=== PATIENT | female | born 2000 | race Two or more races ===

== ENCOUNTER 2019-01-10 06:06 | Observation (INO) | payer SELFPAY ==
[~2019-01-10] VITALS: Ht 157.5 cm; Wt 70.3 kg
[2019-01-10 06:10] VITALS: BP 139/85
[2019-01-10] MEDS ORDERED: LACTATED RINGER'S 1,000 ML IV SCH (06:26)
[2019-01-10] MEDS: TERBUTALINE SULFATE 1 MG/ML 1ML VIAL SC SCH ×3 (06:48→08:21)
[2019-01-10] MEDS ORDERED: BETAMETHASONE ACET (6MG/ML) 5ML VIAL IM ONE (07:45)
[2019-01-10 08:00] LABS: Urine Bacteria FEW /hpf (None Seen); Urine Blood Negative /uL (Negative); Urine Mucus FEW (None Seen); Urine Specific Gravity 1.016 (1.001-1.035); Urine WBC 1 /hpf (0 - 5)
[2019-01-10 08:34] LABS: Basophils # (auto) 0 uL; Basophils % (auto) 0.1 % (0.0-2.0); Eosinophils # (auto) 0.1 uL; Eosinophils % (auto) 0.7 % (0.0-7.0); Hematocrit 37.4 % (36.0-46.0); Hemoglobin 12.1 g/dL (12.2-16.2); Lymphocytes # (auto) 2.8 uL; Lymphocytes % (auto) 18.5 % (10.0-50.0); Mean Corpuscular Hemoglobin 28.2 pg (28.0-32.0); Mean Corpuscular Hgb Conc. 32.4 g/dL (32.0-36.0); Mean Corpuscular Volume 86.8 fL (80.0-100.0); Monocytes # (auto) 0.9 uL; Monocytes % (auto) 6.2 % (0.0-12.0); Neutrophils # (auto) 11.3 uL; Neutrophils % (auto) 74.5 % (37.0-80.0); Nucleated Red Blood Cells % 0.1 %; Platelet Count (auto) 298 10^3/uL (140-450); Red Blood Cells 4.31 10^6/uL (4.0-5.20); Red Cell Distribution Width 13.9 % (11.8-14.3); White Blood Cell 15.2 10^3/uL (4.4-10.8)
[2019-01-10 08:50] LABS: INR < 0.93 (0.9-1.15); Partial Thromboplastin Time 27.1 sec (23.64-32.05)
[2019-01-10 08:52] LABS: Albumin 2.7 g/dL (3.4-5.0); BUN/Creatinine Ratio 12.5; Calcium 8.9 mg/dL (8.5-10.1); Uric Acid 4.1 mg/dL (2.6-6.0)
[2019-01-10 08:55] LABS: Bilirubin, Total 0.4 mg/dL (0.2-1.0); Total Protein 7.1 g/dL (6.4-8.2)
[2019-01-11 06:06] LABS: RPR Non Reactive (Non Reactive)
[2019-01-11 13:06] LABS: Rubella Antibodies, IgG 0.96 index (Immune >0.99)
== END 2019-01-10 08:50 | disposition home or self-care (01) | DRG 833 ==
LOC: ER 06:06 → LDRP 06:07
PROVIDERS: ADMIT Obstetrics & Gynecology; ATTEND Obstetrics & Gynecology
DX: O60.03 Preterm labor without delivery, third trimester (principal); O62.9 Abnormality of forces of labor, unspecified; O99.89 Other specified diseases and conditions complicating pregnancy, childbirth and the puerperium; M25.559 Pain in unspecified hip; Z3A.32 32 weeks gestation of pregnancy
CPT/HCPCS: 36415; 59025; 76805; 80053; 81001; 81002; 84112; 84550; 85025; 85610; 85730; 86592; 86762; 86790; 86850; 86900; 86901; 87340; 96372; 99284; G0378; J0702; J3105

== ENCOUNTER 2019-01-11 14:05 | Observation (INO) | payer SELFPAY ==
[2019-01-11] MEDS ORDERED: BETAMETHASONE ACET (6MG/ML) 5ML VIAL IM ONE (14:45)
== END 2019-01-11 15:25 | disposition home or self-care (01) | DRG 833 ==
LOC: LDRP 14:05
PROVIDERS: ADMIT Specialist; ATTEND Specialist
DX: O26.893 Other specified pregnancy related conditions, third trimester (principal); R10.9 Unspecified abdominal pain; M54.9 Dorsalgia, unspecified; M25.559 Pain in unspecified hip; Z3A.35 35 weeks gestation of pregnancy
CPT/HCPCS: 59025; 81002; 96372; G0378

== ENCOUNTER 2019-01-14 01:23 | Emergency (ER) | payer MEDICAID ==
[~2019-01-14] VITALS: Ht 157.5 cm; Wt 78.0 kg
[2019-01-14] MEDS ORDERED: ACETAMINOPHEN/CODEINE#3 (300/30mg) TAB PO ONE (03:45)
[2019-01-14] MEDS ORDERED: cefTRIAXone SOD 1,000 MG VL IM ONE (04:00)
[2019-01-14 04:15] VITALS: BP 134/74
== END 2019-01-14 04:19 | disposition home or self-care (01) ==
LOC: ER 01:25
DX: O26.893 Other specified pregnancy related conditions, third trimester (principal); L03.011 Cellulitis of right finger; Z3A.28 28 weeks gestation of pregnancy
CPT/HCPCS: 10060; 99283; J0696

== ENCOUNTER 2019-01-15 20:49 | Observation (INO) | payer MEDICAID ==
[~2019-01-15] VITALS: Ht 1 cm; Wt 0.5 kg
[2019-01-15] MEDS ORDERED: LACTATED RINGER'S 1,000 ML IV SCH (20:58)
[2019-01-15] MEDS ORDERED: LACTATED RINGER'S 1,000 ML IV ONE (20:58)
[2019-01-15] MEDS ORDERED: TERBUTALINE SULFATE 1 MG/ML 1ML VIAL SC SCH (21:00)
[2019-01-15 21:39] LABS: Alcohol, Urine < 3.0 mg/dL (0-5); Amphetamine Screen, Urine NEGATIVE (NEGATIVE); Barbiturate Scree,Urine NEGATIVE (NEGATIVE); Benzodiazephine Screen, Urine NEGATIVE (NEGATIVE); Cannabinoid Screen, Urine NEGATIVE (NEGATIVE); Cocaine Screen, Urine NEGATIVE (NEGATIVE); Opiate Scree,Urine NEGATIVE (NEGATIVE); Phencyclidine Screen, Urine NEGATIVE (NEGATIVE)
[2019-01-15] MEDS ORDERED: ceFAZolin 1GM/50ML 50 ML IV SCH (22:00)
[2019-01-15] MEDS ORDERED: ceFAZolin 1GM/50ML 50 ML IV ONE (22:00)
[2019-01-15 22:32] LABS: Basophils # (auto) 0 uL; Basophils % (auto) 0.1 % (0.0-2.0); Eosinophils # (auto) 0.3 uL; Eosinophils % (auto) 1.9 % (0.0-7.0); Lymphocytes # (auto) 2.6 uL; Lymphocytes % (auto) 16.7 % (10.0-50.0); Mean Corpuscular Hemoglobin 28.6 pg (28.0-32.0); Mean Corpuscular Hgb Conc. 33.2 g/dL (32.0-36.0); Mean Corpuscular Volume 86.1 fL (80.0-100.0); Monocytes # (auto) 0.9 uL; Monocytes % (auto) 5.5 % (0.0-12.0); Neutrophils % (auto) 75.8 % (37.0-80.0); Platelet Count (auto) 314 10^3/uL (140-450); Red Blood Cells 4.18 10^6/uL (4.0-5.20); Red Cell Distribution Width 14.2 % (11.8-14.3); White Blood Cell 15.8 10^3/uL (4.4-10.8)
[2019-01-15 22:47] LABS: Albumin 2.3 g/dL (3.4-5.0); BUN/Creatinine Ratio 18.3; Calcium 8.8 mg/dL (8.5-10.1)
[2019-01-15 22:50] LABS: Bilirubin, Total 0.2 mg/dL (0.2-1.0); Total Protein 6.6 g/dL (6.4-8.2)
== END 2019-01-16 00:22 | disposition home or self-care (01) | DRG 566 ==
LOC: LDRP 20:49
PROVIDERS: ADMIT Specialist; ATTEND Specialist
DX: O62.9 Abnormality of forces of labor, unspecified (principal); O60.03 Preterm labor without delivery, third trimester; O23.43 Unspecified infection of urinary tract in pregnancy, third trimester; O99.333 Smoking (tobacco) complicating pregnancy, third trimester; F17.210 Nicotine dependence, cigarettes, uncomplicated; Z3A.33 33 weeks gestation of pregnancy
CPT/HCPCS: 36415; 59025; 80053; 80307; 81002; 84112; 85025; 87086; 87210; 96365; 96372; G0378; J0690; J3105; 96361; 96366

== ENCOUNTER → 2020-05-02 | Emergency (ER) | payer MEDICAID, OTHER ==
[~2020-05-02] VITALS: Ht 157.5 cm; Wt 65.8 kg
[2020-05-02 14:43] VITALS: BP 133/79
== END | disposition left against medical advice (07) ==
LOC: ER 14:38
DX: T19.2XXA Foreign body in vulva and vagina, initial encounter (principal); Z53.21 Procedure and treatment not carried out due to patient leaving prior to being seen by health care provider